=== PATIENT | female | born 1975 | race Caucasian/White ===

== ENCOUNTER 2018-04-19 10:23 | Emergency (ER) | payer OTHER ==
[~2018-04-19] VITALS: Ht 167.6 cm; Wt 113.4 kg
[2018-04-19] MEDS ORDERED: MEDROLDOSEPACK PO (12:00)
[2018-04-19] MEDS ORDERED: NORCO 5-325 TA1 EACH PO (12:00)
[2018-04-19 12:51] VITALS: BP 148/88
== END 2018-04-19 12:30 | disposition home or self-care (01) ==
LOC: M.ERS 10:23
DX: M13.811 Other specified arthritis, right shoulder (principal); F17.210 Nicotine dependence, cigarettes, uncomplicated; Z98.890 Other specified postprocedural states

== ENCOUNTER 2018-11-29 19:07 | Emergency (ER) | payer OTHER ==
[~2018-11-29] VITALS: Ht 167.6 cm; Wt 131.5 kg
[~2018-11-29 19:07] MED LIST: MEDROLDOSEPACK PO; NORCO 5-325 TA1 EACH PO
[2018-11-29] MEDS ORDERED: BUTALB-APAP-CA1 EACH PO (20:27)
[2018-11-29] MEDS ORDERED: CENTANY30 GM TOP (20:27)
[2018-11-29 20:37] VITALS: BP 158/79
== END 2018-11-29 20:37 | disposition home or self-care (01) ==
LOC: M.ERS 19:07
DX: S01.112A Laceration without foreign body of left eyelid and periocular area, initial encounter (principal); Z98.51 Tubal ligation status; S06.0X0A Concussion without loss of consciousness, initial encounter; W18.39XA Other fall on same level, initial encounter; Y93.89 Activity, other specified; Y92.89 Other specified places as the place of occurrence of the external cause; Y99.8 Other external cause status